=== PATIENT | female | born 1955 | race Caucasian/White ===

== ENCOUNTER → 2017-01-10 | Outpatient (CLI) | payer BC ==
--- NOTE | ~2017-01-10 | MY29 ---
[facility] A Service of [facility] RADIOLOGY TEXT RESULTS PATIENT: SID WARD LOCATION: [facility] : 55 UNIT #: [id number] AGE: [address]: Kristin Barragan MD SEX: F ORDER DR: [id number] [facility]. [place], [place] [address] [id number] O MR#: [id number] Acc #: [id number] NAME: SID WARD : 1955 SEX: F STUDY DATE/TIME: 01/10/2017 16:58 UNIT: [facility] ROOM: STUDY DESCRIPTION: [facility] SCREENING W/ CAD BILAT Attending Physician: Kristin Barragan M.D. Ordering Physician: Kristin Barragan M.D. Primary Care Physician: Kristin Barragan M.D. MEDICAL IMAGING REPORT This report is preliminary unless electronic signature is present EXAM Bilateral Digital Screening Mammogram with CAD INDICATION Breast cancer screening. 61-year-old asymptomatic female who reports an unspecified family history of breast cancer. COMPARISON December 28, 2015, December 22, 2014, December 19, 2013, December 17, 2012, December 14, 2011, December 06, 2010, November 26, 2009, October 11, 2007, July 22, 2006, July 09, 2005 FINDINGS There are scattered fibroglandular tissues. No suspicious findings are present. IMPRESSION No mammographic evidence of malignancy. Annual screening mammography and clinical breast exam are recommended. A result letter will be sent to the patient. Patients over the age of 40 are entered into a reminder system with target due date for the next mammogram. BIRADS: 1 Negative Dictated by... Tom Keating M.D. THIS IS AN ELECTRONICALLY VERIFIED REPORT [facility] A Service [facility] RADIOLOGY TEXT RESULTS PATIENT: SID WARD LOCATION: [facility] : 55 UNIT #: [id number] AGE: [address]: Kristin Barragan MD SEX: F ORDER DR: Tom Keating M.D. at 01/11/2017 11:07 PM BLM/james TD: 01/11/2017 16:31 JOB #: [id number] MEDICAL IMAGING REPORT Page 1 of 1 COPY
== END | disposition home or self-care (01) ==
LOC: CWCC 16:35
DX: Z12.31 Encounter for screening mammogram for malignant neoplasm of breast (principal); Z80.3 Family history of malignant neoplasm of breast; E03.9 Hypothyroidism, unspecified
CPT/HCPCS: G0202